=== PATIENT | female | born 2000 | race Hispanic/Latino ===

== ENCOUNTER 2023-11-06 11:10 | Inpatient (IN) | payer OTHER ==
[~2023-11-06] VITALS: Ht 157.5 cm; Wt 100.2 kg
[2023-11-06 11:38] LABS: BASOPHILS # (AUTO) 0.06 K/uL (0.00-0.20); BASOPHILS % (AUTO) 1.1 % (0.0-5.0); EOSINOPHILS # (AUTO) 0.05 K/uL (0.00-0.70); EOSINOPHILS % (AUTO) 0.9 % (0.0-8.0); IMMATURE GRANULOCYTE ABSOLUTE 0.05 K/uL (0-1); LYMPHOCYTES # (AUTO) 2.5 K/uL (1.0-4.8); LYMPHOCYTES % (AUTO) 44.9 % (21.0-51.0); MEAN CORPUSCULAR HEMOGLOBIN 16.8 pg (27.0-33.0); MEAN CORPUSCULAR HGB CONC 26.6 g/dL (32.0-36.0); MEAN CORPUSCULAR VOLUME 63.4 fL (79-99); MONOCYTES # (AUTO) 0.4 K/uL (0.1-1.0); MONOCYTES % (AUTO) 7.5 % (3.0-13.0); NEUTROPHILS # (AUTO) 2.5 K/uL (1.8-7.7); NEUTROPHILS % (AUTO) 44.7 % (40.0-77.0); NUCLEATED RED BLOOD CELLS 0.7 % (0.0-0.19); PLATELET COUNT (AUTO) 411 K/uL (130-400); RED BLOOD CELL COUNT(AUTO) 3.03 MIL/uL (4.00-5.50); RED CELL DISTRIBUTION WIDTH 19.8 % (11.0-15.5); WHITE BLOOD COUNT (AUTO) 5.6 K/uL (4.8-10.8)
[2023-11-06 11:50] LABS: ALBUMIN 3.9 g/dL (3.5-5.0); BILIRUBIN,TOTAL 0.7 mg/dL (0.2-1.0); CREATININE 0.6 mg/dL (0.5-1.0); POTASSIUM 3.6 mmol/L (3.5-5.1); TOTAL PROTEIN, SERUM 8.4 g/dL (6.0-8.3)
[2023-11-06] MEDS: 0.9%NACL 1000ML 1,000 ML IV ONE (12:01)
[2023-11-06 12:05] LABS: INR 1.06 (0.85-1.15); PROTHROMBIN TIME 11.4 SEC (9.6-11.6)
[2023-11-06 12:06] LABS: HEMATOCRIT 19.2 % (36-48)
[2023-11-06 12:07] LABS: PARTIAL THROMBOPLASTIN TIME 22.8 SEC (26.3-35.5)
[2023-11-06] MEDS ORDERED: ONDANSETRON 4MG INJ IVP PRN (12:30)
[2023-11-06] MEDS ORDERED: DIPHENHYDRAMINE HCL 25 MG CAPSULE PO PRN (13:00)
[2023-11-06] MEDS ORDERED: COMPOUND IV MISC 1 EACH IVSOLN MISC PRN (13:00)
[2023-11-06 13:24] LABS: % IRON SATURATION 3.1 % (22-44)
[2023-11-06 13:28] LABS: HEMOGLOBIN A1C 5.2 % (4.0-6.0); THYROID STIMULATING HORMONE 3.56 uIU/mL (0.36-3.74)
[2023-11-06] MEDS: 0.9%NACL 1000ML 1,000 ML IV SCH (16:33)
[2023-11-06 18:06] VITALS: O2SAT 99
[2023-11-06 19:52] LABS: HEMATOCRIT 22.7 % (36-48)
[2023-11-06] MEDS: NORETHINDRONE-ETHINYL ESTRAD 1 TABLET PO SCH (20:15)
[2023-11-06 20:37] VITALS: BP 119/58; PULSE 82; RESP 18
[2023-11-07 00:04] VITALS: BP 118/59; PULSE 89; RESP 18
[2023-11-07] MEDS: ACETAMINOPHEN 500 MG TABLET PO PRN (02:02)
[2023-11-07 03:26] VITALS: BP 115/45; PULSE 76; RESP 19
[2023-11-07 06:49] LABS: BASOPHILS # (AUTO) 0.07 K/uL (0.00-0.20); BASOPHILS % (AUTO) 0.8 % (0.0-5.0); EOSINOPHILS # (AUTO) 0.09 K/uL (0.00-0.70); HEMATOCRIT 25.2 % (36-48); IMMATURE GRANULOCYTE ABSOLUTE 0.04 K/uL (0-1); LYMPHOCYTES # (AUTO) 3.3 K/uL (1.0-4.8); LYMPHOCYTES % (AUTO) 36.4 % (21.0-51.0); MEAN CORPUSCULAR HEMOGLOBIN 20.8 pg (27.0-33.0); MEAN CORPUSCULAR VOLUME 71.8 fL (79-99); MONOCYTES # (AUTO) 0.6 K/uL (0.1-1.0); MONOCYTES % (AUTO) 6.9 % (3.0-13.0); NEUTROPHILS # (AUTO) 4.9 K/uL (1.8-7.7); NEUTROPHILS % (AUTO) 54.5 % (40.0-77.0); NUCLEATED RED BLOOD CELLS 0.4 % (0.0-0.19); PLATELET COUNT (AUTO) 364 K/uL (130-400); RED BLOOD CELL COUNT(AUTO) 3.51 MIL/uL (4.00-5.50); RED CELL DISTRIBUTION WIDTH 23.9 % (11.0-15.5)
[2023-11-07 06:55] LABS: ALBUMIN 3.2 g/dL (3.5-5.0); BILIRUBIN,TOTAL 0.8 mg/dL (0.2-1.0); CREATININE 0.6 mg/dL (0.5-1.0); POTASSIUM 4.2 mmol/L (3.5-5.1); TOTAL PROTEIN, SERUM 6.9 g/dL (6.0-8.3)
[2023-11-07 07:45] VITALS: BP 106/57; PULSE 75; RESP 20
[2023-11-07] MEDS: FOLIC ACID 1 MG TABLET PO SCH (08:06)
[2023-11-07] MEDS: IRON SUCROSE COMPLEX 300 MG in 0.9% NACL 250ML IV SCH ×2 (08:07→09:00)
[2023-11-07] MEDS: FAMOTIDINE 20MG VIAL IV SCH (10:00)
== END 2023-11-07 10:55 | disposition home or self-care (01) | DRG 812 ==
LOC: EDH 11:10 → EDHIP 11:11 → WSH 18:47
PROVIDERS: ADMIT Internal Medicine; ATTEND Internal Medicine
PROC: 30233N1 Transfusion of Nonautologous Red Blood Cells into Peripheral Vein, Percutaneous Approach (ICD-10-PCS; principal; 2023-11-06)
DX: D62 Acute posthemorrhagic anemia (principal); Z68.41 Body mass index [BMI] 40.0-44.9, adult; D50.9 Iron deficiency anemia, unspecified; E66.01 Morbid (severe) obesity due to excess calories; N92.0 Excessive and frequent menstruation with regular cycle
CPT/HCPCS: 36415; 36430; 76856; 80053; 82607; 82728; 82746; 83001; 83036; 83540; 83550; 84443; 84703; 85014; 85018; 85025; 85610; 85730; 86850; 86880; 86900; 86901; 86923; 99291; G0378; J1756; J3490; J7030; J7050; P9016

== ENCOUNTER 2023-11-24 15:16 | Emergency (ER) | payer OTHER ==
[~2023-11-24] VITALS: Ht 157.5 cm; Wt 100.7 kg
[2023-11-24 16:22] VITALS: BP 124/75; PULSE 71; RESP 18; O2SAT 98
[2023-11-24 16:53] LABS: BASOPHILS # (AUTO) 0.07 K/uL (0.00-0.20); BASOPHILS % (AUTO) 0.8 % (0.0-5.0); EOSINOPHILS % (AUTO) 1.1 % (0.0-8.0); HEMATOCRIT 31.3 % (36-48); IMMATURE GRANULOCYTE ABSOLUTE 0.02 K/uL (0-1); LYMPHOCYTES # (AUTO) 1.8 K/uL (1.0-4.8); LYMPHOCYTES % (AUTO) 20.9 % (21.0-51.0); MEAN CORPUSCULAR HEMOGLOBIN 25.1 pg (27.0-33.0); MEAN CORPUSCULAR HGB CONC 31.9 g/dL (32.0-36.0); MEAN CORPUSCULAR VOLUME 78.6 fL (79-99); MONOCYTES # (AUTO) 0.5 K/uL (0.1-1.0); MONOCYTES % (AUTO) 5.3 % (3.0-13.0); NEUTROPHILS # (AUTO) 6.3 K/uL (1.8-7.7); NEUTROPHILS % (AUTO) 71.7 % (40.0-77.0); PLATELET COUNT (AUTO) 499 K/uL (130-400); RED BLOOD CELL COUNT(AUTO) 3.98 MIL/uL (4.00-5.50); WHITE BLOOD COUNT (AUTO) 8.8 K/uL (4.8-10.8)
[2023-11-24 17:03] LABS: CREATININE 0.6 mg/dL (0.5-1.0)
[2023-11-24] MEDS: 0.9%NACL 1000ML 1,000 ML IV ONE (17:08)
[2023-11-24] MEDS: KETOROLAC 30MG VIAL (30MG/ML) IVP ONE (17:12)
[2023-11-24] MEDS ORDERED: ACET-2079 PO (17:32)
[2023-11-24] MEDS: ACETAMINOPHEN WITH CODEINE 1 TAB TAB PO SCH (17:52)
== END 2023-11-24 18:01 | disposition home or self-care (01) ==
LOC: EDH 15:16
DX: D64.9 Anemia, unspecified (principal); N94.6 Dysmenorrhea, unspecified
CPT/HCPCS: 99283; 96374; 96361; 80048; 84703; 85025; 86850; 86900; 86901; 36415; J7030; J1885